=== PATIENT | male | born 1965 | race Caucasian/White ===

== ENCOUNTER 2019-01-25 12:26 | Emergency (ER) | payer MEDICAID ==
[~2019-01-25] VITALS: Ht 172.7 cm; Wt 83.9 kg
--- NOTE | 2019-01-25 12:32 | NUR ---
PATIENT WHEELCHAIR ASSISTED TO BED 7,
[2019-01-25 12:33] VITALS: BP 144/105
--- NOTE | 2019-01-25 12:40 | NUR ---
53/M bib via w/c by DORITA Campa and c/o left thumb laceration today. Pt states he was working on roof and cut his finger with sheet metal. Bleeding controlled at this time. Pt has a full thickness laceration to base of left thumb, pt c/o tingling and decreased sensation. Cap refill less than 3 seconds. No discoloration to thumb. Limited ROM d/t pain.
--- NOTE | 2019-01-25 12:53 | NUR ---
X-Ray at bedside.
--- NOTE | 2019-01-25 13:37 | NUR ---
Patient being evaluated by physician at bedside.
[2019-01-25] MEDS ORDERED: MORPHINE SULFATE 2 MG/ML SYR IM ONE (13:40)
[2019-01-25] MEDS ORDERED: LIDOCAINE MPF 1% 10 MG/ML VIAL INJ ONE ×2 (14:20→15:05)
[2019-01-25] MEDS ORDERED: ACETAMINOPHEN EXTRA STRENGTH 500 MG TAB PO ONE (14:20)
--- NOTE | 2019-01-25 15:03 | NUR ---
REJI BURDEN PERFORMING LAC REPAIR AT BEDSIDE. PROCEDURE REQUIRED ANOTHER 10 ML LIDOCAINE. 2ND VIAL PULLED FROM morphCARD.
--- NOTE | 2019-01-25 15:30 | NUR ---
NON ADHERENT DRESSING AND KERLIX DRESSING APPLIED AND LEFT THUMB SPIKA PLACED BY ALESHIA NETTLES.
[2019-01-25 15:50] VITALS: BP 154/90
--- NOTE | 2019-01-25 15:50 | NUR ---
Patient discharged with v/s stable. Written and verbal after care instructions given and explained. Patient alert, oriented and verbalized understanding of instructions. Ambulatory with steady gait. All questions addressed prior to discharge. ID band removed. Patient advised to follow up with PMD. Rx of Motrin 600 mg and Bacitracin given. Patient educated on indication of medication including possible reaction and side effects. Opportunity to ask questions provided and answered.
== END 2019-01-25 15:50 | disposition home or self-care (01) ==
LOC: MED 12:26
DX: S61.012A Laceration without foreign body of left thumb without damage to nail, initial encounter (principal); W45.8XXA Other foreign body or object entering through skin, initial encounter; Y93.89 Activity, other specified; Y92.89 Other specified places as the place of occurrence of the external cause; Y99.8 Other external cause status
CPT/HCPCS: 12001; 73130; 99283; J2001; Q0092; J2270

== ENCOUNTER 2019-01-28 12:22 | Emergency (ER) | payer MEDICAID ==
[~2019-01-28] VITALS: Ht 175.3 cm; Wt 87.5 kg
[2019-01-28 12:25] VITALS: BP 155/108
--- NOTE | 2019-01-28 12:29 | NUR ---
PT AMBULATE DTO ED BED 12
--- NOTE | 2019-01-28 12:33 | NUR ---
53/M BIB SELF CAME HERE FOR WOUND CHECK. CUT WOUND TO LT HAND, S/P SUTURE ON FRIDAY. WOUND SLIGHLY REDNESS & SWELLING. DENIES PMH.PATIENT STATES PAIN OF 1/10 AT THIS TIME.
[2019-01-28 13:19] VITALS: BP 151/91
== END 2019-01-28 13:22 | disposition home or self-care (01) ==
LOC: MED 12:22
DX: L03.012 Cellulitis of left finger (principal)
CPT/HCPCS: 99283